=== PATIENT | male | born 1950 | race Caucasian/White ===

== ENCOUNTER 2016-07-02 16:06 | Emergency (ER) | payer MEDICARE, OTHER ==
[2016-07-02] MEDS ORDERED: Adacel Vial IM ONE ×2 (16:22→16:25)
--- NOTE | 2016-07-02 16:47 | ERPHSYRPT ---
- History of Present Illness Time Seen by Provider: 07/02/16 16:15 Source: patient, family Exam Limitations: no limitations Patient Subjective Stated Complaint: rt hand Triage Nursing Assessment: scraped rt hand with a mechelle alumunum pipe. superfical abrasion to rt inner wrist. bleeding controlled at present. good sensation. Occurred: just prior to arrival Method of Injury: incised Quality: constant Severity of Pain-Max: mild Severity of Pain-Current: mild Extremities Pain Location: wrist: right (volar surface) Modifying Factors: Improves With: movement Associated Symptoms: none Allergies/Adverse Reactions: No Known Drug Allergies Allergy (Unverified 07/02/16 16:15) Home Medications: Aspirin 81 mg PO DAILY 08/04/15 [History] Atorvastatin Calcium 80 mg PO DAILY 08/04/15 [History] Lisinopril [Zestril] 2.5 mg PO DAILY 08/04/15 [History] Metoprolol Succinate 25 mg Xl* [Toprol-Xl 25MG Tablets] 25 mg PO DAILY [History] Clopidogrel Bisulfate 75 mg [PLAVIX 75 MG Tablet] 75 mg PO DAILY 07/02/16 [History] Hx Tetanus, Diphtheria Vaccination/Date Given: Yes Hx Influenza Vaccination/Date Given: No Hx Pneumococcal Vaccination/Date Given: No Immunizations Up to Date: Yes - Review of Systems Constitutional: No Symptoms Eyes: No Symptoms Ears, Nose, & Throat: No Symptoms Respiratory: No Symptoms Cardiac: No Symptoms Abdominal/Gastrointestinal: No Symptoms Genitourinary Symptoms: No Symptoms Musculoskeletal: No Symptoms Skin: Other (minor abrasion to rvolar right wrist) Neurological: No Symptoms Psychological: No Symptoms Endocrine: No Symptoms, Excessive Sweating Hematologic/Lymphatic: No Symptoms Immunological/Allergic: No Symptoms - Past Medical History Pertinent Past Medical History: Yes Cardiac History: Angina, Coronary Artery Disease, High Cholesterol, Hypertension Male Reproductive Disorders: Prostate Problems - Past Surgical History Past Surgical History: Yes Other Surgical History: 2 stents in groin - Social History Smoking Status: Never smoker Exposure to second hand smoke: No Drug Use: none Patient Lives Alone: No - Nursing Vital Signs Nursing Vital Signs: Initial Vital Signs Temperature 98.1 F Temperature Source Oral Pulse Rate 69 Respiratory Rate 18 Blood Pressure [Right Arm] 123/80 Pain Intensity 0 - Physical Exam General Appearance: no apparent distress Eyes, Ears, Nose, Throat Exam: normal ENT inspection, pharynx normal Neck Exam: normal inspection, non-tender, supple, full range of motion Cardiovascular/Respiratory Exam: chest non-tender, normal breath sounds Abdominal Exam: non-tender, soft Back Exam: normal inspection, normal range of motion Shoulder Exam: normal inspection, non-tender Elbow/Forearm Exam: normal inspection, non-tender Wrist Exam: normal ROM, abrasions, No swelling Neuro/Tendon Exam: normal sensation, normal motor functions, normal tendon functions Mental Status Exam: alert, oriented x 3, cooperative Skin Exam: normal color, warm, dry SpO2 Interpretation: normal SpO2: 98 Oxygen Delivery: Room Air - Course Nursing assessment & vital signs reviewed: Yes Ordered Tests: Medication Summary Discontinued Medications Generic Name Dose Route Start Last Admin Trade Name Freq PRN Reason Stop Dose Admin Diphtheria/Tetanus/Acell Pertussis 0.5 ml 07/02/16 16:22 07/02/16 16:26 Adacel Vial IM 07/02/16 16:23 0.5 ml .ONCE ONE Administration Diphtheria/Tetanus/Acell Pertussis Confirm 07/02/16 16:25 Adacel Vial Administered 07/02/16 16:26 Dose 0.5 ml IM .STK-MED ONE - Progress Progress: improved Counseled pt/family regarding: need for follow-up - Departure Time of Disposition: 16:40 Departure Disposition: Home Clinical Impression: Abrasion of right wrist, initial encounter Qualifiers: Encounter type: initial encounter Qualified Code(s): S60.811A - Abrasion of right wrist, initial encounter Condition: Stable Critical Care Time: No
[2016-07-02 17:04] VITALS: BP 124/84; PULSE 81; O2SAT 99
== END 2016-07-02 17:04 | disposition home or self-care (01) ==
LOC: ED 16:06
DX: S60.811A Abrasion of right wrist, initial encounter (principal); W22.8XXA Striking against or struck by other objects, initial encounter; I25.10 Atherosclerotic heart disease of native coronary artery without angina pectoris; E78.00 Pure hypercholesterolemia, unspecified; I10 Essential (primary) hypertension
CPT/HCPCS: 90471; 90715; 99284

== ENCOUNTER 2016-10-06 10:08 | Day surgery (SDC) | payer MEDICARE, OTHER ==
--- NOTE | 2016-10-06 08:55 | HP ---
DATE OF SURGERY: 10/06/2016 HISTORY OF PRESENT ILLNESS: The patient is a 66 year-old who for the past year has had dysphagia and some hiccoughs, mid to upper esophagus retrosternal area almost every time he eats worse with dough or crackers. Fine if he takes small bites. PAST MEDICAL HISTORY: Hiatal hernia. Heart disease. Coronary stents in the past. He had some stents in his iliac artery it sounds like. Hypertension. PAST SURGICAL HISTORY: Carotid endarterectomy in 2016. MEDICATIONS: Atorvastatin, clopidogrel, lisinopril, low dose aspirin, magnesium oxide, metoprolol, nitroglycerin, Tamsulosin, vitamin D, nitroglycerin PRN. ALLERGIES: NKDA. FAMILY HISTORY: Ovarian cancer. Negative for esophageal cancer. SOCIAL HISTORY: He quit smoking back in 2004. He use to smoke a pack a day. He denies alcohol abuse. REVIEW OF SYSTEMS: The patient has history of 20 pound weight loss, denies any chest pain or palpitations. He has been on Plavix for stents in the past. Twelve systems reviewed negative or noncontributory as above for chronic illnesses. PHYSICAL EXAMINATION: GENERAL: No acute distress. HEENT: Sclerae nonicteric. NECK: No JVD. CHEST: Equal excursion, nonlabored breathing. CVS: Regular rate and rhythm. ABDOMEN: Soft. No peritoneal signs. EXTREMITIES: No significant edema. NEURO: Alert, moving extremities symmetrically. No gross motor deficits noted. IMPRESSION: Dysphagia, some hiccoughs. I feel he will benefit from upper endoscopy, possible dilatation and possible biopsy. Risks and benefits explained in detail including but not limited to bleeding or infection, small risk of bowel injury or perforation possibly requiring open procedure, small risk of missed or nondiagnosis or incomplete exam possibly requiring barium swallow, other studies or procedures. He also understands as he had carotid surgery in the past that he could have more of a neurologic issue rather than mechanical obstruction that dilatation may or may not help. He also understands if he has a narrowed area and dilatation does help there is a chance that he may need repeat dilatation down the road. He understands and agrees to the planned procedure and will proceed with EGD with possible biopsy, possible dilatation. He understands the small risk of perforation possibly requiring major operative procedure, ongoing morbidity/mortality but not limited to. He understands and agrees to the planned procedure, will proceed with EGD possible biopsy, possible dilatation as an outpatient.
[~2016-10-06 10:08] MED LIST: DIPRIVAN 200 MG/20 ML IV ONE; Ketamine HCl 50 MG/ML IV ONE
[2016-10-06] MEDS ORDERED: Lactated Ringers 1,000 ML IV ONE ×2 (10:42→13:57)
[2016-10-06] MEDS ORDERED: Lactated Ringers 1,000 ML IV SCH (11:00)
[2016-10-06 14:33] VITALS: O2SAT 98
[2016-10-06 14:45] VITALS: BP 136/73; PULSE 43
--- NOTE | 2016-10-08 08:31 | OP ---
SURGERY DATE/TIME: 10/06/2016 1215 PREOPERATIVE DIAGNOSIS: History of dysphagia. POSTOPERATIVE DIAGNOSES: 1) A 5 or 6 cm segment of severe ulcerated lesion distal esophagus around 37 cm to 43 cm. 2) Esophageal narrowing secondary to ulcerated distal esophagus. 3) Mild gastritis. PROCEDURES: 1) EGD with cold biopsy of the antrum to evaluate for Helicobacter pylori. 2) Cold biopsy ulcerated distal esophagus to evaluate for malignancy. 3) Esophageal balloon dilatation distal esophagus size 18 balloon dilator. SURGEON: Dr. Elias Dove. ANESTHESIA: MAC. ESTIMATED BLOOD LOSS: Minimal. INDICATIONS: As noted above. Risks and benefits explained in detail and not limited to and consent obtained. DESCRIPTION OF PROCEDURE AND FINDINGS: The patient is taken to the endoscopy room. MAC anesthesia was introduced. After official time out and no disagreement with planned procedure, a bite block positioned. Video gastroscope easily passed down the back of the tongue down the esophagus. Distal part of the esophagus was ulcerated and seemed to have mass-like consistency and some esophageal narrowing. The scope was able to be passed into the stomach through the patent pylorus to the junction of the second and third portion of the duodenum. On withdrawal of the scope, the duodenum and duodenal bulb grossly unremarkable. Duodenal bulb and duodenum grossly unremarkable. No signs of any ulcers or inflammation. The scope pulled back in the stomach and had some mild gastritis. Cold biopsy taken to evaluate for Helicobacter pylori. On retroflex appeared to have a little bit of a hiatal hernia although stomach was not distended well enough to get an excellent view of this area but there did not appear to be any evidence of any large gastric masses at this point. Otherwise no signs of ulcers or any other mucosal lesions in the stomach itself. Cold biopsy had been taken in the antrum for Helicobacter pylori. The scope pulled back to the gastroesophageal junction where there is a roughened area and some ulceration question adenomatous type appearing lesion that extended from about 43 cm up to about 37 cm and was friable. Cold biopsies were taken along this. This was a narrowed segment and he had been having symptoms there. I felt that he would benefit from esophageal dilatation of this area after biopsies had been completed. Adequate hemostasis. The more proximal esophagus was grossly unremarkable on visualization with the endoscope. The scope was then passed back down in the stomach. A size 18 balloon dilator was then carefully placed in the stomach and pulled back to a narrowed area in question and gradually inflated. The first stage was 16 for 30 to 45 seconds then up to size 17 for 30 to 40 seconds and then up to a final size 18 balloon dilator for around a couple minutes. The balloon catheter is then decompressed and removed. The scope was then passed back down in the stomach and gradually withdrawn. It appeared to have adequate hemostasis. There did not appear to be any obvious visible full thickness issues on balloon dilatation or biopsy. The more proximal esophagus grossly unremarkable just a long narrowed, ulcerated segment, question malignancy versus very, very severe esophagitis, path pending. The scope is withdrawn. The patient tolerated the procedure well. There were no immediate complications. Findings discussed with the family in the waiting area. The family was instructed should he start having severe persistent high fevers, pain or any other concerns to return to the emergency department, remote risk of delayed perforation given his friable esophagus. They understand should that happen he likely will need to be transferred to tertiary center given the disease. Otherwise the patient tolerated the procedure well. There were no immediate complications.
== END 2016-10-06 14:30 | disposition home or self-care (01) ==
LOC: SDC 10:08
PROVIDERS: ATTEND Surgery
PROC: 0DB38ZX Excision of Lower Esophagus, Via Natural or Artificial Opening Endoscopic, Diagnostic (ICD-10-PCS; principal; 2016-10-06)
PROC: 0DB68ZX Excision of Stomach, Via Natural or Artificial Opening Endoscopic, Diagnostic (ICD-10-PCS; 2016-10-06)
PROC: 0D758ZZ Dilation of Esophagus, Via Natural or Artificial Opening Endoscopic (ICD-10-PCS; 2016-10-06)
PROC: 0D738ZZ Dilation of Lower Esophagus, Via Natural or Artificial Opening Endoscopic (ICD-10-PCS; 2016-10-06)
DX: K22.2 Esophageal obstruction (principal); K22.10 Ulcer of esophagus without bleeding; K29.70 Gastritis, unspecified, without bleeding; K44.9 Diaphragmatic hernia without obstruction or gangrene; I51.9 Heart disease, unspecified; Z98.61 Coronary angioplasty status; I10 Essential (primary) hypertension; Z79.899 Other long term (current) drug therapy; Z72.0 Tobacco use
CPT/HCPCS: 87081; 88360; 43239; 43249; C1726; 00740; 36415; 88305; 88374; J2704

== ENCOUNTER 2017-12-21 19:28 | Emergency (ER) | payer MEDICARE, OTHER ==
[2017-12-21] MEDS ORDERED: Lasix 40 MG/4 ML ONE (21:24)
[2017-12-21 21:38] LABS: Granulocyte Absolute (ANC) 5.66 (1.4-6.9); Hematocrit 38.3 % (42-50); Hemoglobin 12.7 gm/dl (12.5-18.0); Mean Cell Volume 100.5 fl (78-100); Mean Corpuscular Hemoglobin 33.3 pg (26-32); Mean Corpuscular Hgb Concent. 33.2 g/dl (32-36); Mean Platelet Volume 9.3 fl (6-9.5); Platelet Count 184 K/mm3 (150-450); Red Blood Count 3.81 M/mm3 (4.1-5.6); Red Cell Distribution Width 16.2 % (11.5-14.0); White Blood Count 7.8 K/mm3 (4.0-10.5)
[2017-12-21 21:57] LABS: ANION GAP 8.1 MEQ/L (5-15); BLOOD UREA NITROGEN 20 mg/dL (9-20); CHLORIDE 105 mmol/L (98-107); Calcium 8.7 mg/dL (8.4-10.2); Carbon Dioxide 29 mmol/L (22-30); Creatinine 1 0.55 mg/dL (0.66-1.25); Glucose 85 mg/dL (74-106); Potassium 4.2 mmol/L (3.5-5.1); SODIUM 138 mmol/L (137-145)
--- NOTE | 2017-12-21 22:26 | ERPHSYRPT ---
- History of Present Illness Time Seen by Provider: 12/21/17 20:30 Source: patient Exam Limitations: clinical condition Patient Subjective Stated Complaint: Pt arrives to Er with c/o headache after walking past an air conditioner blowing cold air in his face. pt denies currently having a headache stating "while we were waiting in the waiting room, it faded away." Triage Nursing Assessment: Pt does not appear to be in any distress at this time. Physician History: PATIENT WITH A HISTORY OF CORONARY ARTERY DISEASE, AND PERIPHERAL VASCULAR OCCULSIVE DISEASE COMPLAINS OF ACUTE ONSET OF HEADACHE WHILE WALKILNG PAST AIR CONDITIONER BLOWING IN HIS FACE THIS AFTERNOON. FOUND HIS BLOOD PRESSURE ELEVATED 155/80. DENIES CHEST PAIN, BLURRED VISION ,SLURRED SPEECH. STATES HEADACHE RESOLVED PRIOR TO EMERGENCY ROOM ARRIVAL. Timing/Duration: resolved prior to arrival Severity: moderate Associated Symptoms: denies symptoms Allergies/Adverse Reactions: No Known Drug Allergies Allergy (Verified 12/21/17 20:21) Home Medications: Aspirin 81 mg PO DAILY 08/04/15 [History] Acetaminophen [Tylenol] 325 mg PO TID 02/17/17 [History] Omeprazole 40 mg PO HS 11/25/17 [History] Prednisone 10 mg [Deltasone 10 mg] 6 tab PO UD 11/25/17 [History] Sulfamethoxazole/Trimethoprim [Bactrim Ds Tablet] 1 each PO UD 11/25/17 [History ] Zinc Sulfate 220 mg PO DAILY 11/25/17 [History] Hx Tetanus, Diphtheria Vaccination/Date Given: Yes Hx Influenza Vaccination/Date Given: No Hx Pneumococcal Vaccination/Date Given: No - Review of Systems Constitutional: No Fever, No Chills Eyes: No Symptoms Ears, Nose, & Throat: No Symptoms Respiratory: No Symptoms, No Cough, No Dyspnea Cardiac: No Symptoms, Edema, No Chest Pain, No Syncope Abdominal/Gastrointestinal: No Symptoms, No Abdominal Pain, No Nausea, No Vomiting, No Diarrhea Genitourinary Symptoms: No Symptoms, No Dysuria Musculoskeletal: No Back Pain, No Neck Pain Skin: No Rash Neurological: Headache (RESOLVED PRIOR TO ARRIVAL), No Dizziness, No Focal Weakness, No Sensory Changes Psychological: No Symptoms Endocrine: No Symptoms All Other Systems: Reviewed and Negative - Past Medical History Pertinent Past Medical History: Yes Neurological History: No Pertinent History ENT History: No Pertinent History Cardiac History: Angina, Coronary Artery Disease, High Cholesterol, Hypertension Respiratory History: No Pertinent History Endocrine Medical History: No Pertinent History Musculoskeletal History: No Pertinent History GI Medical History: Other History: No Pertinent History Psycho-Social History: No Pertinent History Male Reproductive Disorders: Prostate Problems Other Medical History: states bp has been running low. esophageal cancer - Past Surgical History Past Surgical History: Yes Neuro Surgical History: No Pertinent History Cardiac: Other Respiratory: No Pertinent History Gastrointestinal: No Pertinent History Genitourinary: No Pertinent History Musculoskeletal: Other Male Surgical History: No Pertinent History Other Surgical History: 2 stents in groin, right carotid endarterectomy, port placement, peg tube placement and removed. 01/2017 removed cancerous mass from esophagus and removed part of stomach. bilateral carpal tunnel - Social History Smoking Status: Former smoker Exposure to second hand smoke: Yes Drug Use: none Patient Lives Alone: Yes - Nursing Vital Signs Nursing Vital Signs: Initial Vital Signs Temperature 99.3 F 12/21/17 20:12 Pulse Rate 80 12/21/17 20:12 Respiratory Rate 18 12/21/17 20:12 Blood Pressure 143/119 12/21/17 20:12 O2 Sat by Pulse Oximetry 98 12/21/17 20:12 Pain Scale Pain Intensity 0 - Physical Exam General Appearance: no apparent distress, alert Eye Exam: PERRL/EOMI, eyes nml inspection Ears, Nose, Throat Exam: normal ENT inspection, TMs normal, pharynx normal, moist mucous membranes Neck Exam: normal inspection, non-tender, supple, full range of motion Respiratory Exam: normal breath sounds, lungs clear, No respiratory distress Cardiovascular Exam: regular rate/rhythm, normal heart sounds, normal peripheral pulses, edema (2+ PRETIBAL PITTING EDEMA) Gastrointestinal/Abdomen Exam: soft, normal bowel sounds, No tenderness, No mass Back Exam: normal inspection, normal range of motion, No CVA tenderness, No vertebral tenderness Extremity Exam: normal inspection, normal range of motion, pelvis stable Neurologic Exam: alert, oriented x 3, cooperative, normal mood/affect, nml cerebellar function, nml station & gait, sensation nml, No motor deficits Skin Exam: normal color, warm, dry, No rash Lymphatic Exam: No adenopathy SpO2 Interpretation: normal SpO2: 99 Oxygen Delivery: Room Air - Course EKG Interpreted by Me: RATE, Sinus Rhythm, Non-specific ST Changes Ordered Tests: Active Orders 24 hr Category Date Time Status Environment Friendly Landscape Designer STAT Care 12/21/17 21:17 Active EKG-ER Only STAT Care 12/21/17 21:16 Active IV Insertion STAT Care 12/21/17 21:16 Active Pulse Oximetry (ED) STAT Care 12/21/17 21:16 Active BMP Stat Lab 12/21/17 21:34 Completed CBC W DIFF Stat Lab 12/21/17 21:34 Completed Manual Differential NC Stat Lab 12/21/17 21:34 Completed Medication Summary Generic Name Dose Route Start Last Admin Trade Name Freq PRN Reason Stop Dose Admin Furosemide 20 mg 12/22/17 21:18 12/21/17 21:42 Lasix 20 Mg/2 Ml IV 12/22/17 21:19 20 mg STAT ONE Administration Discontinued Medications Generic Name Dose Route Start Last Admin Trade Name Freq PRN Reason Stop Dose Admin Furosemide Confirm 12/21/17 21:24 Lasix 40 Mg/4 Ml Administered 12/21/17 21:25 Dose 40 mg .ROUTE .STK-MED ONE Lab/Rad Data: Laboratory Result Diagrams 12/21/17 21:34 12/21/17 21:34 Laboratory Results 12/21/17 12/21/17 Range/Units 21:34 21:34 WBC 7.8 (4.0-10.5) K/mm3 RBC 3.81 L (4.1-5.6) M/mm3 Hgb 12.7 (12.5-18.0) gm/dl Hct 38.3 L (42-50) % MCV 100.5 H (78-100) fl MCH 33.3 H (26-32) pg MCHC 33.2 (32-36) g/dl RDW 16.2 H (11.5-14.0) % Plt Count 184 (150-450) K/mm3 MPV 9.3 (6-9.5) fl Absolute Granulocytes 5.66 (1.4-6.9) Sodium 138 (137-145) mmol/L Potassium 4.2 (3.5-5.1) mmol/L Chloride 105 (98-107) mmol/L Carbon Dioxide 29 (22-30) mmol/L Anion Gap 8.1 (5-15) MEQ/L BUN 20 (9-20) mg/dL Creatinine 0.55 L (0.66-1.25) mg/dL Estimated GFR > 60.0 ML/MIN Glucose 85 (74-106) mg/dL Calcium 8.7 (8.4-10.2) mg/dL - Progress Progress Note: 12/21/17 22:26 SALINE LOCK FOLLOWED BY LASIX 20MG IV, FOLLOWED BY GOOD DURESIS 12/21/17 22:27 Counseled pt/family regarding: lab results, diagnosis, need for follow-up - Departure Time of Disposition: 22:35 Departure Disposition: Home Clinical Impression: DEPENDENT EDEMA Condition: Stable Critical Care Time: No Referrals: TONIA CROCKETT [Primary Care Provider] - Additional Instructions: ELEVATE FEET HIGHER THAN WAIST WHILE SITTING OR SUPINE POSITION. LASIX 20MG DAILY FOR 1WEEK ALONG WITH KLOR CON 10MEQ DAILY FOR 7 DAYS. CONSULT YOUR PRIMARY CARE PROVIDER FOR FOLLOWUP IN 1 WEEK. Prescriptions: Furosemide 20 mg [Lasix 20 mg] 20 mg PO DAILY #7 tablet Potassium Chloride 10 Meq Tab* [Klor Con 10 MEQ] 10 meq PO DAILY #7 tab
[2017-12-21 22:40] VITALS: BP 143/90; PULSE 64; O2SAT 98
[2017-12-22 01:00] LABS: Lymphocytes 20 % (24-44); Monocyte 10 % (0.0-12.0); Neutrophils 70 % (36.-66.); Total Cells Counted 100
[2017-12-22 01:01] LABS: ANISOCYTOSIS 1+; Macrocytosis 1+; Platelet Estimate NORMAL (NORMAL)
[2017-12-22] MEDS ORDERED: Lasix 20 MG/2 ML IV ONE (21:18)
== END 2017-12-21 22:40 | disposition home or self-care (01) ==
LOC: ED 19:28
DX: R60.9 Edema, unspecified (principal); Z79.82 Long term (current) use of aspirin; Z79.899 Other long term (current) drug therapy
CPT/HCPCS: 36000; 36415; 80048; 85025; 93005; 96374; 96376; 99284; J1940

== ENCOUNTER 2019-12-05 12:09 | Day surgery (SDC) | payer MEDICARE, OTHER ==
--- NOTE | 2019-12-05 09:01 | HP ---
DATE OF SURGERY: 12/05/2019 HISTORY OF PRESENT ILLNESS: The patient is a 69 year old with prior history of Port-A-Cath in the past. Esophageal cancer in the past. He no longer using port and desires removal. PAST MEDICAL HISTORY: Esophageal cancer. PAST SURGICAL HISTORY: Appendectomy. Esophageal resection in the past. Endoscopy in the past. Port placed in the past. MEDICATIONS: Aspirin, clopidogrel, donepezil, atorvastatin, hydrocortisone cream, Nitrostat PRN, Tylenol. ALLERGIES: HALDOL. FAMILY HISTORY: Negative in regards to this problem. SOCIAL HISTORY: No alcohol abuse. REVIEW OF SYSTEMS: Thirteen systems reviewed. No chest pain or palpitations. Other systems negative or noncontributory as above and per preadmission questionnaire. PHYSICAL EXAMINATION: GENERAL: No acute distress. HEENT: Sclerae nonicteric. NECK: No JVD. CHEST: Equal excursion, nonlabored breathing. CVS: Regular rate and rhythm. ABDOMEN: Soft. No peritoneal signs. EXTREMITIES: No significant edema. NEURO: Alert, oriented, moving extremities symmetrically. No gross motor deficits noted. IMPRESSION: Esophageal cancer and he has finished treatment now and now he is in need of removal of the Port-A-Cath as he is no longer using. The patient explained the details including bleeding or infection, risk of bowel injury or perforation possibly requiring further procedure, risk of hematoma or seroma formation, remote risk of sedation, remote risk of catheter port fracture or failure possibly requiring just tying off the port, general risk of aches, pains, hematoma or seroma but not limited to, will proceed with removal of Port-A-Cath under IV sedation.
[~2019-12-05 12:09] MED LIST changes: -DIPRIVAN 200 MG/20 ML IV ONE; -Ketamine HCl 50 MG/ML IV ONE; +XYLOCAINE 1% HCL 20 ML MDV ONE
[2019-12-05] MEDS ORDERED: VERSED 5 MG/5 ML IV ONE (12:10)
[2019-12-05] MEDS ORDERED: SUBLIMAZE 100 MCG/2 ML IV ONE (12:10)
[2019-12-05] MEDS ORDERED: Lactated Ringers 1,000 ML IV SCH (12:30)
[2019-12-05 14:51] VITALS: O2SAT 98
[2019-12-05 15:25] VITALS: PULSE 56
[2019-12-05 15:55] VITALS: BP 127/87
--- NOTE | 2019-12-06 12:39 | OP ---
SURGERY DATE/TIME: 12/05/2019 1350 PREOPERATIVE DIAGNOSIS: Undesired Port-A-Cath, done with chemotherapy treatments, desires for removal of Port-A-Cath. POSTOPERATIVE DIAGNOSIS: Undesired Port-A-Cath, done with chemotherapy treatments, desires for removal of Port-A-Cath. PROCEDURES: 1) Removal of tunnel Port-A-Cath. 2) Surgeon monitored and managed IV conscious sedation for 15 minutes. SURGEON: Dr. Elias Dove. ANESTHESIA: IV conscious sedation. ESTIMATED BLOOD LOSS: Minimal. INDICATIONS: As noted above. Risks and benefits explained in detail and not limited to and consent obtained. DESCRIPTION OF PROCEDURE AND FINDINGS: The patient is taken to the operating room. After continuous pulse oximetry and blood pressure monitoring he is incrementally sedated with IV Versed 2 mg, IV Fentanyl 50 mcg to a comfortable state and hemodynamically stable. After official time out and no disagreement with the planned procedure, he was prepped and draped in usual sterile fashion. 1% lidocaine local infiltrated in field pattern around the port pocket area. Transverse incision made through the old scar. Dissection carried down. Two Prolene sutures cut. The port and tunnel catheter were then carefully mobilized upwards, removed intact and passed off. The tunnel track closed with 3-0 Vicryl. The fibrous pocket closed with 3-0 Vicryl. He had a little oozing at skin line but the subcu was closed with 3-0 Vicryl. Skin closed with 4-0 Vicryl. Steri-Strips and sterile dressing applied. The patient tolerated the procedure well. Appeared to have adequate hemostasis at the end of the procedure. There was no family here to discuss the findings with.
== END 2019-12-05 15:50 | disposition home or self-care (01) ==
LOC: SDC 12:09
PROVIDERS: ATTEND Surgery
DX: Z45.2 Encounter for adjustment and management of vascular access device (principal); Z85.01 Personal history of malignant neoplasm of esophagus; Z79.899 Other long term (current) drug therapy
CPT/HCPCS: J2250; J3010

== ENCOUNTER 2020-12-01 20:42 | Observation (INO) | payer MEDICARE, OTHER ==
[2020-12-01] MEDS ORDERED: Sodium Chloride 0.9% 1000 ML 1,000 ML IV SCH (22:45)
[2020-12-01 23:06] LABS: Absolute Neutrophil Ct (ANC) 7.63 (1.4-6.9); BASOPHIL % 0.1 % (0.0-0.4); Basophil (Absolute #) 0.01 (0-0.4); Eosinophil % 0.1 % (0.00-5.0); Eosinophil (Absolute #) 0.01 (0-0.5); Hematocrit 36.8 % (42-50); Hemoglobin 11.6 gm/dl (12.5-18.0); Lymphocyte (Absolute #) 0.72 (1.0-4.6); Lymphocytes % 7.9 % (24.0-44.0); Mean Cell Volume 96.3 fl (78-100); Mean Corpuscular Hemoglobin 30.4 pg (26-32); Mean Corpuscular Hgb Concent. 31.5 g/dl (32-36); Mean Platelet Volume 9.3 fl (7.5-11.0); Monocyte (Absolute #) 0.71 (0.0-1.3); Monocytes % 7.8 % (0.0-12.0); Neutrophil % 84.1 % (36.0-66.0); Platelet Count 303 K/mm3 (150-450); Red Blood Count 3.82 M/mm3 (4.1-5.6); Red Cell Distribution Width 14.2 % (11.5-14.0); White Blood Count 9.1 K/mm3 (4.0-10.5)
[2020-12-01 23:14] LABS: ALBUMIN 3.4 g/dL (3.5-5.0); ALKALINE PHOSPHATASE 81 U/L (38-126); ANION GAP 12.2 MEQ/L (5-15); BLOOD UREA NITROGEN 21 mg/dL (9-20); CHLORIDE 103 mmol/L (98-107); Carbon Dioxide 30 mmol/L (22-30); Creatinine 1 0.64 mg/dL (0.66-1.25); EST GLOMERULAR FILTRATION RATE > 60.0 ML/MIN; Glucose 117 mg/dL (74-106); Potassium 3.8 mmol/L (3.5-5.1); SGOT/AST 18 U/L (17-59); SGPT/ALT 9 U/L (0-50); SODIUM 141 mmol/L (137-145); Total Protein 6.7 g/dL (6.3-8.2)
[2020-12-01] MEDS ORDERED: ROCEPHIN 1 Gm-D5w 50 ml Bag** 1 G/50 ML IVPB IV STA (23:18)
--- NOTE | 2020-12-01 23:27 | ERPHSYRPT ---
- History of Present Illness Time Seen by Provider: 12/01/20 20:55 Source: family Exam Limitations: clinical condition Patient Subjective Stated Complaint: states "He fell about 5 this morning. He hasn't complained of pain but my son wants him checked out." Triage Nursing Assessment: pt came into the er via ambulance; pt is axo x1; c/o fall; pt denies pain; states pt has demenita; good ROM to all extremities; no bruising or tenderness anywhere; states that fall was unwitness; no rotation present to BLE; vitals wnl; states that pt was unable to walk today; states that son wants pt evaluated Physician History: Patient is a 70-year-old male who presents with his family after a fall at 5 AM this morning he was brought in by EMS. The family was only concerned about possible trauma from the fall and initially would only allow imaging. He had no loss of consciousness the fall was not witnessed but he was seen quickly after the fall and there was no loss of consciousness he does have parkinsonism and Lewy body dementia end-stage. Occurred: this morning Reason for Fall: unknown Injuries/Pain Location: no injury Loss of Consciousness: no loss of consciousness Severity of Pain-Max: none Severity of Pain-Current: none Modifying Factors: Improves With: nothing Allergies/Adverse Reactions: haloperidol [From Haldol] Adverse Reaction (Verified 12/01/20 20:45) dt on a medication that haldol could cause adverse reaction Home Medications: Aspirin 81 mg PO DAILY 08/04/15 [History] Atorvastatin Calcium 10 mg PO DAILY 11/28/19 [History] Clopidogrel Bisulfate 75 mg [PLAVIX 75 MG Tablet] 75 mg PO DAILY 11/28/19 [History] Donepezil HCl 10 mg [Aricept 10 MG] 10 mg PO HS 11/28/19 [History] Nitroglycerin 0.4 mg Tablet [Nitrostat 0.4 MG Tablet] 0.4 mg SL Q5MIN PRN MR X 3 PRN 11/28/19 [History] Hx Tetanus, Diphtheria Vaccination/Date Given: Yes Hx Influenza Vaccination/Date Given: No Hx Pneumococcal Vaccination/Date Given: No Travel Risk - International Travel Have you traveled outside of the country in past 3 weeks: No - Coronavirus Screening Are you exhibiting any of the following symptoms?: No Close contact with a COVID-19 positive Pt in past 14-21 Days: No - Vaccine Status Have you recieved a Covid-19 vaccination: No - Review of Systems All Other Systems: Unable due to condition - Past Medical History Pertinent Past Medical History: Yes Neurological History: Dementia ENT History: No Pertinent History Cardiac History: Angina, Coronary Artery Disease, High Cholesterol, Hypertension Respiratory History: No Pertinent History Endocrine Medical History: No Pertinent History Musculoskeletal History: No Pertinent History GI Medical History: Other History: No Pertinent History Psycho-Social History: No Pertinent History Male Reproductive Disorders: Prostate Problems Other Medical History: states bp has been running low. esophageal cancer - Past Surgical History Past Surgical History: Yes Neuro Surgical History: No Pertinent History Cardiac: Cardiac Stent, Other Respiratory: No Pertinent History Gastrointestinal: No Pertinent History Genitourinary: No Pertinent History Musculoskeletal: Other Male Surgical History: No Pertinent History Other Surgical History: 2 stents in groin, right carotid endarterectomy, port placement, peg tube placement and removed. 01/2017 removed cancerous mass from esophagus and removed part of stomach. bilateral carpal tunnel - Social History Smoking Status: Former smoker Exposure to second hand smoke: Yes Drug Use: none Patient Lives Alone: No - Nursing Vital Signs Nursing Vital Signs: Initial Vital Signs Temperature 99.1 F 12/01/20 20:45 Pulse Rate 78 12/01/20 20:45 Respiratory Rate 16 12/01/20 20:45 Blood Pressure 111/73 12/01/20 20:45 O2 Sat by Pulse Oximetry 97 12/01/20 20:45 Pain Scale Pain Intensity 0 - Physical Exam General Appearance: no apparent distress Head Injury: no evidence of injury, No Demarco's Sign, No contusions, No lacerations, No raccoon eyes Eye Exam: PERRL/EOMI, eyes nml inspection ENT Exam: airway nml, No evidence of ENT injury Neck Exam: supple, trachea midline, normal inspection Respiratory/Chest Exam: normal breath sounds, No respiratory distress Cardiovascular Exam: normal heart sounds, regular rate/rhythm Gastrointestinal Exam: soft, normal bowel sounds Extremity Exam: normal inspection, normal range of motion Neurologic Exam: other (Patient is severely demented and unable to cooperate with exam) Skin Exam: normal color, warm, dry SpO2 Interpretation: normal SpO2: 90 O2 Delivery: Room Air - Course Nursing assessment & vital signs reviewed: Yes - Radiology Exams Other X-ray Interpretation: Other (Cellulitis x-rays of the chest show a consolidation in the right middle lobe with collapse hips and pelvis are negative KUB is negative for trauma) - CT Exams Head CT Interpretation: Negative Cervical Spine CT Interpretation: Negative Ordered Tests: Active Orders 24 hr Category Date Time Status EKG-ER Only STAT Care 12/01/20 22:36 Active IV Insertion STAT Care 12/01/20 22:36 Active CERVICAL SPINE WO CONTRAST [CT] Stat Exams 12/01/20 20:56 Taken CHEST 1 VIEW (PORTABLE) Stat Exams 12/01/20 20:55 Taken HEAD WITHOUT CONTRAST [CT] Stat Exams 12/01/20 20:56 Taken HIPS JES(2V) INCL PEL IF DONE Stat Exams 12/01/20 20:55 Taken KUB Stat Exams 12/01/20 20:55 Taken BLOOD CULTURE Stat Lab 12/01/20 23:03 Ordered CBC W DIFF Stat Lab 12/01/20 23:03 Completed CMP Stat Lab 12/01/20 23:03 Completed Lactic Acid Stat Lab 12/01/20 22:47 Completed UA W/RFX UR CULTURE Stat Lab 12/01/20 23:03 Received Medication Summary Generic Name Dose Route Start Last Admin Trade Name Freq PRN Reason Stop Dose Admin Sodium Chloride 1,000 mls @ 100 mls/hr 12/01/20 22:45 12/01/20 22:50 Sodium Chloride 0.9% 1000 Ml IV 12/31/20 22:44 100 mls/hr .Q10H SERA Administration Ceftriaxone Sodium/Dextrose 1 g in 50 mls @ 100 mls/hr 12/01/20 23:18 Rocephin 1 Gm-D5w 50 Ml Bag IV 12/01/20 23:47 STAT STA Lab/Rad Data: Laboratory Result Diagrams 12/01/20 23:03 12/01/20 23:03 Laboratory Results 12/01/20 12/01/20 12/01/20 Range/Units 23:03 23:03 22:47 WBC 9.1 (4.0-10.5) K/mm3 RBC 3.82 L (4.1-5.6) M/mm3 Hgb 11.6 L (12.5-18.0) gm/dl Hct 36.8 L (42-50) % MCV 96.3 (78-100) fl MCH 30.4 (26-32) pg MCHC 31.5 L (32-36) g/dl RDW 14.2 H (11.5-14.0) % Plt Count 303 (150-450) K/mm3 MPV 9.3 (7.5-11.0) fl Gran % 84.1 H (36.0-66.0) % Eos # (Auto) 0.01 (0-0.5) Absolute Lymphs (auto) 0.72 L (1.0-4.6) Absolute Monos (auto) 0.71 (0.0-1.3) Lymphocytes % 7.9 L (24.0-44.0) % Monocytes % 7.8 (0.0-12.0) % Eosinophils % 0.1 (0.00-5.0) % Basophils % 0.1 (0.0-0.4) % Absolute Granulocytes 7.63 H (1.4-6.9) Basophils # 0.01 (0-0.4) Sodium 141 (137-145) mmol/L Potassium 3.8 (3.5-5.1) mmol/L Chloride 103 (98-107) mmol/L Carbon Dioxide 30 (22-30) mmol/L Anion Gap 12.2 (5-15) MEQ/L BUN 21 H (9-20) mg/dL Creatinine 0.64 L (0.66-1.25) mg/dL Estimated GFR > 60.0 ML/MIN Glucose 117 H (74-106) mg/dL Lactic Acid 0.8 (0.4-2.0) Calcium 9.0 (8.4-10.2) mg/dL Total Bilirubin 0.70 (0.2-1.3) mg/dL AST 18 (17-59) U/L ALT 9 (0-50) U/L Alkaline Phosphatase 81 (38-126) U/L Serum Total Protein 6.7 (6.3-8.2) g/dL Albumin 3.4 L (3.5-5.0) g/dL - Progress Progress: unchanged Discussed with : Aj - Departure Departure Disposition: Observation Clinical Impression: Right middle lobe pneumonia Condition: Fair Critical Care Time: No Referrals: FABRIZIO WALKER MD [Primary Care Provider] -
[2020-12-01 23:43] LABS: Appearance CLEAR (CLEAR); Bilirubin NEGATIVE (NEGATIVE); Blood MODERATE Ery/ul (0-5); Glucose NEGATIVE (NEGATIVE); Ketones TRACE (NEGATIVE); Leukocyte Esterase NEGATIVE (NEGATIVE); Mucus SLIGHT /HPF (NEGATIVE); Nitrite NEGATIVE (NEGATIVE); Protein,Urine Dip NEGATIVE (Negative); RBC 51-100 /HPF (0-2); Specific Gravity 1.019 (1.005-1.025); Urobilinogen 4 mg/dL (0-1)
[2020-12-02 06:40] LABS: Absolute Neutrophil Ct (ANC) 8.31 (1.4-6.9); BASOPHIL % 0.1 % (0.0-0.4); Basophil (Absolute #) 0.01 (0-0.4); Eosinophil % 0.3 % (0.00-5.0); Eosinophil (Absolute #) 0.03 (0-0.5); Hematocrit 32.7 % (42-50); Hemoglobin 11.3 gm/dl (12.5-18.0); Lymphocyte (Absolute #) 0.52 (1.0-4.6); Lymphocytes % 5.4 % (24.0-44.0); Mean Corpuscular Hemoglobin 33.5 pg (26-32); Mean Corpuscular Hgb Concent. 34.6 g/dl (32-36); Mean Platelet Volume 9.6 fl (7.5-11.0); Monocyte (Absolute #) 0.76 (0.0-1.3); Monocytes % 7.9 % (0.0-12.0); Neutrophil % 86.3 % (36.0-66.0); Platelet Count 283 K/mm3 (150-450); Red Blood Count 3.37 M/mm3 (4.1-5.6); Red Cell Distribution Width 14.2 % (11.5-14.0); White Blood Count 9.6 K/mm3 (4.0-10.5)
[2020-12-02 06:54] LABS: ALBUMIN 3.1 g/dL (3.5-5.0); ALKALINE PHOSPHATASE 73 U/L (38-126); ANION GAP 12.1 MEQ/L (5-15); BLOOD UREA NITROGEN 18 mg/dL (9-20); CHLORIDE 105 mmol/L (98-107); Calcium 8.6 mg/dL (8.4-10.2); Carbon Dioxide 26 mmol/L (22-30); Creatinine 1 0.49 mg/dL (0.66-1.25); EST GLOMERULAR FILTRATION RATE > 60.0 ML/MIN; Glucose 100 mg/dL (74-106); Potassium 3.6 mmol/L (3.5-5.1); SGOT/AST 16 U/L (17-59); SGPT/ALT 7 U/L (0-50); SODIUM 140 mmol/L (137-145); Total Protein 6.1 g/dL (6.3-8.2)
--- NOTE | 2020-12-02 07:17 | XRAY ---
Indication: Status post fall. Comparison: None KUB demonstrates nonspecific nonobstructed bowel gas pattern with mild diffuse fecal debris. 2 cm left/3 mm right renal calculi, epigastric/left upper quadrant surgical clips, and biiliac stent grafts. Osseous structures intact with mild osteopenia and multilevel degenerative spondylosis. Impression: Nonacute nonobstructed KUB with chronic findings.
--- NOTE | 2020-12-02 07:19 | XRAY ---
Indication: Status post fall. Comparison: None AP pelvis and 2 view left/right hip demonstrates mild osteopenia, multilevel degenerative spondylosis, bilateral iliac stents, and mild scattered vascular calcifications. No other bony, articular, or soft tissue abnormalities.
--- NOTE | 2020-12-02 07:21 | XRAY ---
Indication: Status post fall. Multiple contiguous axial images obtained through the head without contrast. Comparison: None Age-appropriate global atrophy and moderate periventricular degenerative micro-ischemia bilaterally. No acute intracranial hemorrhage, abnormal extra-axial fluid collection, or mass effect. Fourth ventricle is midline without hydrocephalus. Bony calvarium intact. Visualized paranasal sinuses and mastoid air cells are clear. Impression: Nonacute senile brain. Comment: Preliminary interpretation made by [facility]. No critical discrepancy.
--- NOTE | 2020-12-02 07:21 | XRAY ---
Indication: Cough. Status post fall. Comparison: None Portable apical lordotic chest underinflated with right mid to lower lung consolidating airspace disease and small effusion. Remaining heart and left lung unremarkable. Bony thorax intact with mild osteopenia and degenerative changes.
--- NOTE | 2020-12-02 07:25 | XRAY ---
Indication: Status post fall. Multiple contiguous axial images obtained through the cervical spine. Sagittal and coronal reformatted images obtained. Comparison: None Osseous structures are mineralized. Axial images negative for acute fracture, suspicious bone lesions, or spinal canal stenosis. Mild/moderate multilevel degenerative endplate spurring and bilateral degenerative facet hypertrophy. Sagittal and coronal reformatted images demonstrate normal alignment. Minimal/mild multilevel degenerative endplate spurring. No acute compression fracture, subluxation, or jumped facet. Normal appearing craniocervical junction. Visualized noncontrasted soft tissues demonstrates moderate bilateral carotid calcifications, and right carotid endarterectomy. Incidental moderate fluid distended esophagus either distal obstruction versus gastroesophageal reflux. Lung apices demonstrates biapical subpleural cystic changes. Impression: 1. Negative acute fracture/subluxation. 2. Multilevel degenerative changes. 3. Fluid distended esophagus. Rule out distal obstruction versus gastroesophageal reflux. Comment: Preliminary interpretation made by [facility]. No critical discrepancy
[2020-12-02] MEDS: Sodium Chloride 0.9% 1000 ML 1,000 ML IV SCH (08:22)
[2020-12-02] MEDS: Zithromax 500 MG/ 250 ML NaCl Premix 500 MG/250 ML IVPB IV SCH (08:22)
[2020-12-02 08:58] LABS: Slide Review 1 YES
[2020-12-02] MEDS ORDERED: Ativan 2 MG/1 ML VIAL IV PRN (10:25)
[2020-12-02] MEDS: ENOXAPARIN SODIUM SQ SCH (10:47)
[2020-12-02] MEDS: PROTONIX 40 MG IV IV SCH (10:47)
--- NOTE | 2020-12-02 16:19 | PCM.HP ---
History of Present Illness - Chief Complaint Chief Complaint: RML Pneumonia History of Present Illness: is a 70 year old male with Lewy body dementia. Medications & Allergies Home Medications: Home Medication List Aspirin 81 mg PO DAILY 08/04/15 [History Confirmed 12/02/20] Atorvastatin Calcium 10 mg PO HS 11/28/19 [History Confirmed 12/02/20] Clopidogrel Bisulfate 75 mg [PLAVIX 75 MG Tablet] 75 mg PO DAILY 11/28/19 [History Confirmed 12/02/20] Donepezil HCl 10 mg [Aricept 10 MG] 10 mg PO DAILY 11/28/19 [History Confirmed 12/02/20] Nitroglycerin 0.4 mg Tablet [Nitrostat 0.4 MG Tablet] 0.4 mg SL Q5MIN PRN MR X 3 PRN 11/28/19 [History Confirmed 12/02/20] Acetaminophen 325 mg [Tylenol 325 mg] 650 mg PO Q6H PRN PRN 12/02/20 [History Confirmed 12/02/20] Memantine HCl 10 mg PO BID 12/02/20 [History Confirmed 12/02/20] Omeprazole 20 mg PO BID 12/02/20 [History Confirmed 12/02/20] clonazePAM [Clonazepam] 0.5 mg PO HS 12/02/20 [History Confirmed 12/02/20] Amoxicillin/Potassium Clav [Augmentin 500-125 Tablet] 500 mg PO DAILY #7 tablet 12/04/20 [Rx] Azithromycin 500 mg PO DAILY 5 Days tablet 12/04/20 [Rx] Allergies/Adverse Reactions: Allergies Allergy/AdvReac Type Severity Reaction Status Date / Time haloperidol [From Haldol] AdvReac Verified 12/01/20 20:45 - Past Medical History Past Medical History: Yes Neurological History: Dementia ENT History: No Pertinent History Cardiac History: No Pertinent History Respiratory History: No Pertinent History Endocrine Medical History: No Pertinent History Musculoskelatal History: No Pertinent History GI Medical History: Esophageal Disorder, Ulcer History: No Pertinent History Pyscho-Social History: No Pertinent History Male Reproductive Disorders: Prostate Problems Comment: pt had carotid Sx, and takes plavix, pt had esophageal cx and had a mass removed in 2017, states pt has been cx free since then, pt goes to [place] to have esophagus stretched every two months stretch - Past Surgical History Past Surgical History: Yes Neuro Surgical History: No Pertinent History Cardiac History: Other Respiratory Surgery: No Pertinent History GI Surgical History: Other Genitourinary Surgical Hx: No Pertinent History Musculskeletal Surgical Hx: No Pertinent History Male Surgical History: No Pertinent History Other Surgical History: Esophageal mass removed in 2017, and Carotid Sx - Social History Smoking Status: Former smoker Exposure to second hand smoke: No Alcohol: None Drug Use: none - Physical Exam Vital Signs: Vital Signs - 24 hr Temp Pulse Resp BP Pulse Ox 12/02/20 12:56 93 L 12/02/20 12:00 98.1 F 85 22 125/74 93 L 12/02/20 08:00 98.7 F 84 22 115/75 93 L 12/02/20 01:59 94 L 12/02/20 00:57 98.7 F 63 20 107/88 94 L 12/02/20 00:34 85 129/84 97 12/01/20 23:40 78 130/83 98 12/01/20 23:28 90 L 12/01/20 22:06 73 20 133/110 90 L 12/01/20 20:45 99.1 F 78 16 111/73 97 Results - Labs Lab/Micro Results: Lab Results-Last 24 Hours 12/01/20 12/01/20 12/01/20 Range/Units 22:47 23:03 23:03 WBC 9.1 (4.0-10.5) K/mm3 RBC 3.82 L (4.1-5.6) M/mm3 Hgb 11.6 L (12.5-18.0) gm/dl Hct 36.8 L (42-50) % MCV 96.3 (78-100) fl MCH 30.4 (26-32) pg MCHC 31.5 L (32-36) g/dl RDW 14.2 H (11.5-14.0) % Plt Count 303 (150-450) K/mm3 MPV 9.3 (7.5-11.0) fl Gran % 84.1 H (36.0-66.0) % Eos # (Auto) 0.01 (0-0.5) Absolute Lymphs (auto) 0.72 L (1.0-4.6) Absolute Monos (auto) 0.71 (0.0-1.3) Lymphocytes % 7.9 L (24.0-44.0) % Monocytes % 7.8 (0.0-12.0) % Eosinophils % 0.1 (0.00-5.0) % Basophils % 0.1 (0.0-0.4) % Absolute Granulocytes 7.63 H (1.4-6.9) Basophils # 0.01 (0-0.4) Sodium (137-145) mmol/L Potassium (3.5-5.1) mmol/L Chloride (98-107) mmol/L Carbon Dioxide (22-30) mmol/L Anion Gap (5-15) MEQ/L BUN (9-20) mg/dL Creatinine (0.66-1.25) mg/dL Estimated GFR ML/MIN Glucose (74-106) mg/dL Lactic Acid 0.8 (0.4-2.0) Calcium (8.4-10.2) mg/dL Total Bilirubin (0.2-1.3) mg/dL AST (17-59) U/L ALT (0-50) U/L Alkaline Phosphatase (38-126) U/L Serum Total Protein (6.3-8.2) g/dL Albumin (3.5-5.0) g/dL Urine Color YELLOW (YELLOW) Urine Appearance CLEAR (CLEAR) Urine pH 6.0 (5-6) Ur Specific Binford 1.019 (1.005-1.025) Urine Protein NEGATIVE (Negative) Urine Ketones TRACE (NEGATIVE) Urine Blood MODERATE (0-5) Romie/ul Urine Nitrite NEGATIVE (NEGATIVE) Urine Bilirubin NEGATIVE (NEGATIVE) Urine Urobilinogen 4 (0-1) mg/dL Ur Leukocyte Esterase NEGATIVE (NEGATIVE) Urine WBC (Auto) 3-5 (0-5) /HPF Urine RBC (Auto) 51-100 (0-2) /HPF U Epithel Cells (Auto) NONE (FEW) /HPF Urine Bacteria (Auto) NONE (NEGATIVE) /HPF Urine Mucus (Auto) SLIGHT (NEGATIVE) /HPF Urine Culture Reflexed YES (NO) Urine Glucose NEGATIVE (NEGATIVE) mg/dL SARS-CoV-2 (PCR) (NEGATIVE) Slides for Path Review 12/01/20 12/01/20 12/02/20 Range/Units 23:03 23:42 05:12 WBC 9.6 (4.0-10.5) K/mm3 RBC 3.37 L (4.1-5.6) M/mm3 Hgb 11.3 L (12.5-18.0) gm/dl Hct 32.7 L (42-50) % MCV 97.0 (78-100) fl MCH 33.5 H (26-32) pg MCHC 34.6 (32-36) g/dl RDW 14.2 H (11.5-14.0) % Plt Count 283 (150-450) K/mm3 MPV 9.6 (7.5-11.0) fl Gran % 86.3 H (36.0-66.0) % Eos # (Auto) 0.03 (0-0.5) Absolute Lymphs (auto) 0.52 L (1.0-4.6) Absolute Monos (auto) 0.76 (0.0-1.3) Lymphocytes % 5.4 L (24.0-44.0) % Monocytes % 7.9 (0.0-12.0) % Eosinophils % 0.3 (0.00-5.0) % Basophils % 0.1 (0.0-0.4) % Absolute Granulocytes 8.31 H (1.4-6.9) Basophils # 0.01 (0-0.4) Sodium 141 (137-145) mmol/L Potassium 3.8 (3.5-5.1) mmol/L Chloride 103 (98-107) mmol/L Carbon Dioxide 30 (22-30) mmol/L Anion Gap 12.2 (5-15) MEQ/L BUN 21 H (9-20) mg/dL Creatinine 0.64 L (0.66-1.25) mg/dL Estimated GFR > 60.0 ML/MIN Glucose 117 H (74-106) mg/dL Lactic Acid (0.4-2.0) Calcium 9.0 (8.4-10.2) mg/dL Total Bilirubin 0.70 (0.2-1.3) mg/dL AST 18 (17-59) U/L ALT 9 (0-50) U/L Alkaline Phosphatase 81 (38-126) U/L Serum Total Protein 6.7 (6.3-8.2) g/dL Albumin 3.4 L (3.5-5.0) g/dL Urine Color (YELLOW) Urine Appearance (CLEAR) Urine pH (5-6) Ur Specific Binford (1.005-1.025) Urine Protein (Negative) Urine Ketones (NEGATIVE) Urine Blood (0-5) Romie/ul Urine Nitrite (NEGATIVE) Urine Bilirubin (NEGATIVE) Urine Urobilinogen (0-1) mg/dL Ur Leukocyte Esterase (NEGATIVE) Urine WBC (Auto) (0-5) /HPF Urine RBC (Auto) (0-2) /HPF U Epithel Cells (Auto) (FEW) /HPF Urine Bacteria (Auto) (NEGATIVE) /HPF Urine Mucus (Auto) (NEGATIVE) /HPF Urine Culture Reflexed (NO) Urine Glucose (NEGATIVE) mg/dL SARS-CoV-2 (PCR) NEGATIVE (NEGATIVE) Slides for Path Review YES 12/02/20 12/02/20 Range/Units 05:12 05:19 WBC (4.0-10.5) K/mm3 RBC (4.1-5.6) M/mm3 Hgb (12.5-18.0) gm/dl Hct (42-50) % MCV (78-100) fl MCH (26-32) pg MCHC (32-36) g/dl RDW (11.5-14.0) % Plt Count (150-450) K/mm3 MPV (7.5-11.0) fl Gran % (36.0-66.0) % Eos # (Auto) (0-0.5) Absolute Lymphs (auto) (1.0-4.6) Absolute Monos (auto) (0.0-1.3) Lymphocytes % (24.0-44.0) % Monocytes % (0.0-12.0) % Eosinophils % (0.00-5.0) % Basophils % (0.0-0.4) % Absolute Granulocytes (1.4-6.9) Basophils # (0-0.4) Sodium 140 (137-145) mmol/L Potassium 3.6 (3.5-5.1) mmol/L Chloride 105 (98-107) mmol/L Carbon Dioxide 26 (22-30) mmol/L Anion Gap 12.1 (5-15) MEQ/L BUN 18 (9-20) mg/dL Creatinine 0.49 L (0.66-1.25) mg/dL Estimated GFR > 60.0 ML/MIN Glucose 100 (74-106) mg/dL Lactic Acid 0.9 (0.4-2.0) Calcium 8.6 (8.4-10.2) mg/dL Total Bilirubin 0.70 (0.2-1.3) mg/dL AST 16 L (17-59) U/L ALT 7 (0-50) U/L Alkaline Phosphatase 73 (38-126) U/L Serum Total Protein 6.1 L (6.3-8.2) g/dL Albumin 3.1 L (3.5-5.0) g/dL Urine Color (YELLOW) Urine Appearance (CLEAR) Urine pH (5-6) Ur Specific Binford (1.005-1.025) Urine Protein (Negative) Urine Ketones (NEGATIVE) Urine Blood (0-5) Romie/ul Urine Nitrite (NEGATIVE) Urine Bilirubin (NEGATIVE) Urine Urobilinogen (0-1) mg/dL Ur Leukocyte Esterase (NEGATIVE) Urine WBC (Auto) (0-5) /HPF Urine RBC (Auto) (0-2) /HPF U Epithel Cells (Auto) (FEW) /HPF Urine Bacteria (Auto) (NEGATIVE) /HPF Urine Mucus (Auto) (NEGATIVE) /HPF Urine Culture Reflexed (NO) Urine Glucose (NEGATIVE) mg/dL SARS-CoV-2 (PCR) (NEGATIVE) Slides for Path Review - Radiology Impressions Radiology Exams & Impressions: Radiology Procedures Category Date Time Status CERVICAL SPINE WO CONTRAST [CT] Stat Exams 12/01/20 20:56 Completed CHEST 1 VIEW (PORTABLE) Stat Exams 12/01/20 20:55 Completed HEAD WITHOUT CONTRAST [CT] Stat Exams 12/01/20 20:56 Completed HIPS JES(2V) INCL PEL IF DONE Stat Exams 12/01/20 20:55 Completed KUB Stat Exams 12/01/20 20:55 Completed
[2020-12-02] MEDS: DEXTROSE 5% -NACL 0.9% 1000 ML + KCl 20 MEQ 1,000 ML IV SCH (16:52)
[2020-12-02] MEDS: ROCEPHIN 1 Gm-D5w 50 ml Bag** 1 G/50 ML IVPB IV SCH (21:45)
[2020-12-03] MEDS: Sodium Chloride 0.9% 1000 ML 1,000 ML IV SCH (01:37)
[2020-12-03] MEDS: DEXTROSE 5% -NACL 0.9% 1000 ML + KCl 20 MEQ 1,000 ML IV SCH ×3 (01:40→19:51)
[2020-12-03 05:20] LABS: Absolute Neutrophil Ct (ANC) 6.69 (1.4-6.9); BASOPHIL % 0.1 % (0.0-0.4); Basophil (Absolute #) 0.01 (0-0.4); Eosinophil % 0.3 % (0.00-5.0); Eosinophil (Absolute #) 0.02 (0-0.5); Hematocrit 36.3 % (42-50); Hemoglobin 11.3 gm/dl (12.5-18.0); Lymphocyte (Absolute #) 0.54 (1.0-4.6); Mean Cell Volume 96.5 fl (78-100); Mean Corpuscular Hemoglobin 30.1 pg (26-32); Mean Corpuscular Hgb Concent. 31.1 g/dl (32-36); Mean Platelet Volume 9.3 fl (7.5-11.0); Monocyte (Absolute #) 0.49 (0.0-1.3); Monocytes % 6.3 % (0.0-12.0); Neutrophil % 86.3 % (36.0-66.0); Platelet Count 296 K/mm3 (150-450); Red Blood Count 3.76 M/mm3 (4.1-5.6); Red Cell Distribution Width 14.4 % (11.5-14.0); White Blood Count 7.8 K/mm3 (4.0-10.5)
[2020-12-03 06:21] LABS: ALBUMIN 2.8 g/dL (3.5-5.0); ALKALINE PHOSPHATASE 68 U/L (38-126); BLOOD UREA NITROGEN 18 mg/dL (9-20); CHLORIDE 109 mmol/L (98-107); Calcium 8.5 mg/dL (8.4-10.2); Carbon Dioxide 25 mmol/L (22-30); EST GLOMERULAR FILTRATION RATE > 60.0 ML/MIN; Glucose 183 mg/dL (74-106); SGOT/AST 15 U/L (17-59); SGPT/ALT 8 U/L (0-50); SODIUM 139 mmol/L (137-145); TSH, 3RD Generation 0.639 mIU/L (0.47-4.68); Total Protein 5.7 g/dL (6.3-8.2); Vitamin B12 975 pg/mL (239-931)
[2020-12-03 08:36] LABS: Slide Review 1 YES
[2020-12-03] MEDS: Zithromax 500 MG/ 250 ML NaCl Premix 500 MG/250 ML IVPB IV SCH (09:52)
[2020-12-03] MEDS: ENOXAPARIN SODIUM SQ SCH (09:53)
[2020-12-03] MEDS: PROTONIX 40 MG IV IV SCH (09:53)
--- NOTE | 2020-12-03 14:37 | PCM.NOTE ---
Date and Time: 12/03/20 1421 Subjective Assessment: Patient is awake today and is tolerating a soft diet. at bedside feeding patient lunch. Objective Exam General Appearance: no apparent distress Neurologic Exam: alert (oriented to person), cooperative, normal mood/affect (pleasant) Skin Exam: normal color, warm, dry Respiratory Exam: rhonchi, wheezing (mid lung watkins) Cardiovascular Exam: regular rate/rhythm Gastrointestinal/Abdomen Exam: soft (nontender) Extremity Exam: normal inspection Back Exam: normal inspection OBJECTIVE DATA Vital Signs: Vital Signs - 24 hr Temp Pulse Resp BP Pulse Ox 12/03/20 11:46 97.9 F 62 16 114/66 96 12/03/20 09:48 92 L 12/03/20 07:58 98.0 F 63 16 137/71 97 12/03/20 04:00 97.5 F 66 18 106/57 94 L 12/03/20 00:00 97.9 F 82 20 110/57 92 L 12/02/20 20:20 90 L 12/02/20 20:17 98.8 F 92 H 18 121/79 94 L 12/02/20 16:00 97.5 F 68 18 109/65 94 L Pain Assessment - Last Documented Pain Intensity 0 Intake and Output: Intake & Output 12/01/20 12/02/20 12/03/20 12/04/20 11:59 11:59 11:59 11:59 Intake Total 478 3185 Balance 478 3185 Weight 57.7 kg 57.7 kg Lab Results: Lab Results-Last 24 Hours 12/03/20 12/03/20 Range/Units 04:45 04:45 WBC 7.8 (4.0-10.5) K/mm3 RBC 3.76 L (4.1-5.6) M/mm3 Hgb 11.3 L (12.5-18.0) gm/dl Hct 36.3 L (42-50) % MCV 96.5 (78-100) fl MCH 30.1 (26-32) pg MCHC 31.1 L (32-36) g/dl RDW 14.4 H (11.5-14.0) % Plt Count 296 (150-450) K/mm3 MPV 9.3 (7.5-11.0) fl Gran % 86.3 H (36.0-66.0) % Eos # (Auto) 0.02 (0-0.5) Absolute Lymphs (auto) 0.54 L (1.0-4.6) Absolute Monos (auto) 0.49 (0.0-1.3) Lymphocytes % 7.0 L (24.0-44.0) % Monocytes % 6.3 (0.0-12.0) % Eosinophils % 0.3 (0.00-5.0) % Basophils % 0.1 (0.0-0.4) % Absolute Granulocytes 6.69 (1.4-6.9) Basophils # 0.01 (0-0.4) Sodium 139 (137-145) mmol/L Potassium 4.0 (3.5-5.1) mmol/L Chloride 109 H (98-107) mmol/L Carbon Dioxide 25 (22-30) mmol/L Anion Gap 9.0 (5-15) MEQ/L BUN 18 (9-20) mg/dL Creatinine 0.50 L (0.66-1.25) mg/dL Estimated GFR > 60.0 ML/MIN Glucose 183 H (74-106) mg/dL Calcium 8.5 (8.4-10.2) mg/dL Total Bilirubin 0.50 (0.2-1.3) mg/dL AST 15 L (17-59) U/L ALT 8 (0-50) U/L Alkaline Phosphatase 68 (38-126) U/L Serum Total Protein 5.7 L (6.3-8.2) g/dL Albumin 2.8 L (3.5-5.0) g/dL Vitamin B12 975 H (239-931) pg/mL TSH 3rd Generation 0.639 (0.47-4.68) mIU/L Slides for Path Review YES Radiology Exams: Radiology Procedures Category Date Time Status CERVICAL SPINE WO CONTRAST [CT] Stat Exams 12/01/20 20:56 Completed CHEST 1 VIEW (PORTABLE) Stat Exams 12/01/20 20:55 Completed HEAD WITHOUT CONTRAST [CT] Stat Exams 12/01/20 20:56 Completed HIPS JES(2V) INCL PEL IF DONE Stat Exams 12/01/20 20:55 Completed KUB Stat Exams 12/01/20 20:55 Completed Assessment/Plan (1) Right middle lobe pneumonia Status: Acute Qualifiers: Pneumonia type: due to unspecified organism Qualified Code(s): J18.9 - Pneumonia, unspecified organism Code(s): J18.9 - PNEUMONIA, UNSPECIFIED ORGANISM (2) Somnolence Status: Resolved Assessment & Plan: IV fluids overnight and antibiotics,back to baseline per . (3) Dementia Status: Chronic Qualifiers: Dementia type: Lewy body dementia Assessment & Plan: is considering hospice at home. Code(s): F03.90 - UNSPECIFIED DEMENTIA WITHOUT BEHAVIORAL DISTURBANCE (4) Fall Status: Acute Assessment & Plan: patient tries to get up in the night usually and falls. 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 Code(s): W19.XXXA - UNSPECIFIED FALL, INITIAL ENCOUNTER
[2020-12-03] MEDS ORDERED: TYLENOL 325 MG PO PRN (16:02)
[2020-12-03] MEDS ORDERED: Nitrostat 0.4 MG Tablet SL PRN (16:02)
[2020-12-03] MEDS: ECOTRIN 81 MG PO SCH (17:31)
[2020-12-03] MEDS: PLAVIX 75 MG Tablet PO SCH (17:31)
[2020-12-03] MEDS: Aricept 10 MG PO SCH (17:31)
[2020-12-03] MEDS ORDERED: Zocor 10MG PO SCH (22:00)
[2020-12-03] MEDS ORDERED: NON-FORMULARY ITEM (Memantine Hcl [Memantine Hcl] 10 MG) PO SCH (22:00)
[2020-12-03] MEDS ORDERED: clonazePAM PO SCH (22:00)
[2020-12-03] MEDS ORDERED: NON-FORMULARY ITEM (Atorvastatin Calcium [Atorvastatin Calcium] 10 MG) PO SCH (22:00)
[2020-12-03] MEDS ORDERED: NON-FORMULARY ITEM (Omeprazole [Omeprazole] 20 MG) PO SCH (22:00)
[2020-12-03] MEDS: Protonix 40MG Tablet PO SCH (22:17)
[2020-12-03] MEDS: Namenda 5 MG PO SCH (22:17)
[2020-12-03] MEDS: ROCEPHIN 1 Gm-D5w 50 ml Bag** 1 G/50 ML IVPB IV SCH (22:17)
[2020-12-04 05:38] LABS: Absolute Neutrophil Ct (ANC) 6.39 (1.4-6.9); BASOPHIL % 0.1 % (0.0-0.4); Basophil (Absolute #) 0.01 (0-0.4); Eosinophil % 0.7 % (0.00-5.0); Eosinophil (Absolute #) 0.05 (0-0.5); Hematocrit 35.3 % (42-50); Hemoglobin 10.7 gm/dl (12.5-18.0); Lymphocyte (Absolute #) 0.59 (1.0-4.6); Lymphocytes % 7.8 % (24.0-44.0); Mean Cell Volume 98.1 fl (78-100); Mean Corpuscular Hemoglobin 29.7 pg (26-32); Mean Corpuscular Hgb Concent. 30.3 g/dl (32-36); Mean Platelet Volume 9.4 fl (7.5-11.0); Monocyte (Absolute #) 0.48 (0.0-1.3); Monocytes % 6.4 % (0.0-12.0); Platelet Count 287 K/mm3 (150-450); Red Cell Distribution Width 14.2 % (11.5-14.0); White Blood Count 7.5 K/mm3 (4.0-10.5)
[2020-12-04] MEDS: DEXTROSE 5% -NACL 0.9% 1000 ML + KCl 20 MEQ 1,000 ML IV SCH (06:04)
[2020-12-04 06:24] LABS: ALBUMIN 2.7 g/dL (3.5-5.0); ALKALINE PHOSPHATASE 64 U/L (38-126); ANION GAP 8.2 MEQ/L (5-15); BLOOD UREA NITROGEN 14 mg/dL (9-20); CHLORIDE 110 mmol/L (98-107); Calcium 8.5 mg/dL (8.4-10.2); Carbon Dioxide 25 mmol/L (22-30); Creatinine 1 0.48 mg/dL (0.66-1.25); EST GLOMERULAR FILTRATION RATE > 60.0 ML/MIN; Glucose 154 mg/dL (74-106); Potassium 3.7 mmol/L (3.5-5.1); SGOT/AST 17 U/L (17-59); SGPT/ALT 8 U/L (0-50); SODIUM 139 mmol/L (137-145); Total Protein 5.5 g/dL (6.3-8.2)
[2020-12-04 08:03] LABS: Slide Review 1 YES
[2020-12-04] MEDS: ECOTRIN 81 MG PO SCH (10:08)
[2020-12-04] MEDS: ENOXAPARIN SODIUM SQ SCH (10:09)
[2020-12-04] MEDS: PLAVIX 75 MG Tablet PO SCH (10:09)
[2020-12-04] MEDS: Protonix 40MG Tablet PO SCH (10:09)
[2020-12-04] MEDS: Aricept 10 MG PO SCH (10:09)
[2020-12-04] MEDS: Namenda 5 MG PO SCH (10:09)
[2020-12-04] MEDS: Zithromax 500 MG/ 250 ML NaCl Premix 500 MG/250 ML IVPB IV SCH (10:09)
[2020-12-04 16:16] VITALS: BP 114/74; PULSE 67; O2SAT 96
== END 2020-12-04 18:15 | disposition hospice, home (50) ==
LOC: ED 20:42 → MED SURG 12-02 00:53
PROVIDERS: ADMIT Family Medicine; ATTEND Family Medicine
DX: J18.9 Pneumonia, unspecified organism (principal); G20 Parkinson's disease; F02.80 Dementia in other diseases classified elsewhere, unspecified severity, without behavioral disturbance, psychotic disturbance, mood disturbance, and anxiety; Z79.899 Other long term (current) drug therapy; Z79.01 Long term (current) use of anticoagulants; Z85.01 Personal history of malignant neoplasm of esophagus; R40.0 Somnolence; W19.XXXA Unspecified fall, initial encounter; Z20.822 Contact with and (suspected) exposure to COVID-19; I10 Essential (primary) hypertension; E78.00 Pure hypercholesterolemia, unspecified
CPT/HCPCS: 36000; 36415; 70450; 71045; 72125; 73521; 74018; 80053; 81001; 82607; 83605; 84443; 85025; 87040; 87086; 93005; 94760; 99285; G0378; U0003; J0456; J0696; J1650; A9270-GY